=== PATIENT | male | born 1965 | race Caucasian/White ===

== ENCOUNTER 2017-09-12 11:57 | Emergency (ER) | payer OTHER ==
[2017-09-12 12:16] VITALS: BP 126/79; TEMP 98.1; O2SAT 95
[2017-09-12] MEDS ORDERED: predniSONE 20 MG TAB PO ONE (12:16)
--- NOTE | 2017-09-12 12:34 | ED.PDOC ---
History of Present Illness - General Chief Complaint: Skin/Abrasion/Tear Stated Complaint: hives,facial swelling Time Seen by Provider: 09/12/17 12:16 Source: patient, RN notes reviewed Additional Information: Pt with long-standing chronic urticaria secondary to asbestos exposure (per patient report). He states he has been weaning his daily prednisone because he is running out - now down to 20 mg daily but almost out of prednisone. He notes some facial redness/pruritis and more hives than usual today. Patient with no respiratory complaints at this time. He is in no distress just frustrated with his acute on chronic condition. - History of Present Illness Timing/Duration: getting worse - per report. He has chronci hives. Severity: moderate Improving Factors: medication Worsening Factors: nothing Associated Symptoms: denies symptoms, other - hives Allergies/Adverse Reactions: Allergies Penicillins Allergy (Verified 08/16/14 06:27) Tetanus Toxoid Allergy (Verified 08/16/14 06:26) Home Medications: Ambulatory Orders Prednisone [Deltasone] 20 mg PO BEDTIME 09/12/17 predniSONE 60 mg PO DAILY #30 tab 09/12/17 Review of Systems - Review of Systems Constitutional: States: no symptoms reported EENTM: States: no symptoms reported Respiratory: States: no symptoms reported Cardiology: States: no symptoms reported Gastrointestinal/Abdominal: States: no symptoms reported Genitourinary: States: no symptoms reported Musculoskeletal: States: no symptoms reported Skin: States: see HPI, rash Neurological: States: no symptoms reported Endocrine: States: no symptoms reported Hematologic/Lymphatic: States: no symptoms reported Past Medical History (General) - Patient Medical History Hx Asthma: Yes Hx Congestive Heart Failure: No Hx Diabetes: No Surgical History: tonsillectomy - Vaccination History Hx Tetanus, Diphtheria Vaccination: - allergic to tetnus Hx Influenza Vaccination: No - Social History Hx Tobacco Use: No Family Medical History - Family History Father Family History: Unknown Physical Exam - Physical Exam General Appearance: Alert, Comfortable, No apparent distress, Well Developed, Well Groomed, Well Hydrated, Well Nourished Eye Exam: bilateral normal Ears, Nose, Throat: hearing grossly normal, normal ENT inspection, normal pharynx Neck: non-tender, full range of motion, supple, normal inspection Respiratory: no respiratory distress, no accessory muscle use Cardiovascular/Chest: regular rate, rhythm Gastrointestinal/Abdominal: non tender, soft Back Exam: normal inspection Extremity: normal range of motion 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 Departure - Departure Clinical Impression: Chronic idiopathic urticaria Time of Disposition: 12:42 Disposition: Discharge to Home or Self Care Condition: Fair Departure Forms: ED Discharge - Pt. Copy, Patient Portal Self Enrollment Instructions: DI for Hives Referrals: Vale Angeles NP [Primary Care Provider] - 1-2 Weeks Prescriptions: predniSONE 60 mg PO DAILY #30 tab Home Medications: Ambulatory Orders Prednisone [Deltasone] 20 mg PO BEDTIME 09/12/17 predniSONE 60 mg PO DAILY #30 tab 09/12/17 Additional Instructions: Follow-up with Computer Operations [facility] for definitive long-term management. Return to ER if condition worsens - unable to function or difficulty breathing.
== END 2017-09-12 12:38 | disposition home or self-care (01) ==
LOC: ER 11:57
DX: L50.1 Idiopathic urticaria (principal); Z88.0 Allergy status to penicillin; Z88.7 Allergy status to serum and vaccine

== ENCOUNTER 2019-07-13 15:20 | Emergency (ER) | payer OTHER ==
--- NOTE | 2019-07-13 15:51 | ED.PDOC ---
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 HE STOPPED SWEATING AND HE HAD THE SPELL HE LAID DOWN WHEN HE STARTED TO SWEAT PROFUSELY HE HAS NO NAUSEA NO CHEST PAIN NO SHORTNESS OF BREATH - History of Present Illness Timing/Duration: unsure Severity: moderate Improving Factors: rest Worsening Factors: movement Associated Symptoms: denies symptoms Allergies/Adverse Reactions: Allergies Penicillins Allergy (Verified 08/16/14 06:27) Tetanus Toxoid Allergy (Verified 08/16/14 06:26) Home Medications: Ambulatory Orders Omalizumab [Xolair] 300 mg SC MONTHLY 07/13/19 Review of Systems - Review of Systems Constitutional: States: weakness EENTM: States: no symptoms reported Respiratory: States: no symptoms reported Cardiology: States: no symptoms reported Gastrointestinal/Abdominal: States: no symptoms reported Genitourinary: States: no symptoms reported Musculoskeletal: States: no symptoms reported Skin: States: no symptoms reported Neurological: States: no symptoms reported Endocrine: States: no symptoms reported Hematologic/Lymphatic: States: no symptoms reported Past Medical History (General) - Patient Medical History Hx Asthma: Yes Hx Congestive Heart Failure: No Hx Diabetes: No - Vaccination History Hx Tetanus, Diphtheria Vaccination: - allergic to tetnus Hx Influenza Vaccination: No - Social History Hx Tobacco Use: No Family Medical History - Family History Father Family History: Unknown Physical Exam - Physical Exam General Appearance: Alert, Comfortable Eye Exam: bilateral normal Ears, Nose, Throat: hearing grossly normal, normal ENT inspection, normal pharynx Neck: non-tender, full range of motion, supple Respiratory: chest non-tender, lungs clear, normal breath sounds, no respiratory distress, no accessory muscle use Cardiovascular/Chest: normal peripheral pulses, regular rate, rhythm, no edema, no gallop, no JVD, no murmur Peripheral Pulses: radial,right: 2+ Gastrointestinal/Abdominal: normal bowel sounds, non tender, soft Back Exam: normal inspection, no CVA tenderness, no vertebral tenderness Extremity: normal range of motion, non-tender, normal inspection 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, no motor/sensory deficits, alert, normal mood/affect, oriented x 3 Progress - Results/Orders Results/Orders: Laboratory Tests 07/13/19 07/13/19 16:00 16:00 WBC 8.8 RBC 4.70 Hgb 14.1 Hct 41.8 L MCV 89.0 MCH 29.9 MCHC 33.6 RDW 14.5 Plt Count 163 MPV 8.8 Absolute Neuts (auto) 7.50 H Absolute Lymphs (auto) 0.90 L Absolute Monos (auto) 0.40 Absolute Eos (auto) 0.00 Absolute Basos (auto) 0.00 Neutrophils % 84.7 H Lymphocytes % 10.7 L Monocytes % 4.0 Eosinophils % 0.4 L Basophils % 0.2 Sodium 136 Potassium 3.5 L Chloride 104 Carbon Dioxide 23 Anion Gap 12.5 BUN 16 Creatinine 0.77 BUN/Creatinine Ratio 20.8 H Random Glucose 104 Serum Osmolality 273.5 L Calcium 8.8 Total Bilirubin 0.7 AST 15 ALT 13 Alkaline Phosphatase 58 Serum Total Protein 7.1 Albumin 4.3 Globulin 2.8 Albumin/Globulin Ratio 1.5 1700 HOURS PT VOIDED FEELS A LOT BETTER RECHECK TILT IF CORRECTED DC HOME Departure - Departure Clinical Impression: Heat exhaustion Time of Disposition: 17:02 Disposition: Discharge to Home or Self Care Condition: Good Diet: resume usual diet Referrals: Vale Angeles NP [Primary Care Provider] - 1-2 Weeks Home Medications: Ambulatory Orders Omalizumab [Xolair] 300 mg SC MONTHLY 07/13/19
[2019-07-13] MEDS ORDERED: SODIUM CHLORIDE 0.9% 1000ML 1,000 ML IVS ONE ×2 (15:53→16:31)
[2019-07-13 18:41] VITALS: BP 148/90; TEMP 96.7; O2SAT 99
== END 2019-07-13 18:35 | disposition home or self-care (01) ==
LOC: ER 15:20
DX: T67.5XXA Heat exhaustion, unspecified, initial encounter (principal); J45.909 Unspecified asthma, uncomplicated; Z88.0 Allergy status to penicillin; Z88.7 Allergy status to serum and vaccine
CPT/HCPCS: 80053; 85025; J7030